=== PATIENT | female | born 1995 | race Caucasian/White ===

== ENCOUNTER 2017-03-12 06:13 | Emergency (ER) | payer OTHER ==
[~2017-03-12] VITALS: Ht 172.7 cm; Wt 80.0 kg
[2017-03-12 06:16] VITALS: TEMP 36.5; Ht 172.7 cm; Wt 80.0 kg
[2017-03-12] MEDS ORDERED: KETOROLAC TROMETHAMINE 30 MG/ML VIAL IV STA (06:31)
[2017-03-12] MEDS ORDERED: HYDROmorphone INJ 1 MG/ML SYR IV STA (06:31)
[2017-03-12] MEDS ORDERED: ONDANSETRON INJ 2 MG/ML 2 ML VIAL IV STA (06:31)
--- NOTE | 2017-03-12 06:39 | EMERGENCY ROOM VISIT NOTE ---
History Report prepared by Luisa: Charis Walker Under the Supervision of: Dr. Kartik Joshi M.D. First contact with patient: 06:29 Chief Complaint: KIDNEY STONE Stated Complaint: KIDNEY STONE History of Present Illness The patient is a 21 year old female who presents to the Emergency Room with complaints of right flank pain beginning at 0400 this morning. She describes the pain as a stabbing sensation, and rates it at a 10/10. She also complains of nausea. The patient reports a history of kidney stones. Source of History: patient Onset: 0400 this morning Position: other (right flank ) Symptom Intensity: rated at a 10/10 Quality: stabbing Associated Symptoms: + nausea Review of Systems See HPI for pertinent positives & negatives. A total of 10 systems reviewed and were otherwise negative. Family History No pertinent family history stated. Social History Smoking Status: Never Smoker Occupation Status: [employer] Current/Historical Medications Scheduled Ondasetron Odt (Zofran Odt), 4 MG SL Q6H Sulfa/Trimethoprim (Bactrim Ds 800MG/160MG), 1 TAB PO BID Scheduled PRN Oxycodone/Acetaminophen 5MG/325MG (Percocet 5MG/325MG), 1-2 TAB PO Q4H PRN for Pain Allergies Coded Allergies: No Known Allergies (Unverified , 03/12/17) Physical Exam Vital Signs Date Time Temp Pulse Resp B/P (MAP) Pulse Ox O2 Delivery O2 Flow Rate FiO2 03/12/17 09:05 55 20 106/58 100 03/12/17 07:19 80 20 112/68 100 03/12/17 06:16 36.5 97 20 113/64 97 Room Air Physical Exam GENERAL: Patient is a healthy-appearing well-nourished female HEAD: Normocephalic atraumatic EYES: Ocular movements intact pupils equal and react to light OROPHARYNX mucous membranes are moist no exudates present no erythema or edema present NECK: Supple no nuchal rigidity CHEST: Good equal expansion LUNGS: Clear and equal to auscultation CARDIAC: Normal S1 and S2 ABDOMEN: Soft nontender no guarding BACK: No CVA tenderness EXTREMITIES: No pain upon palpation normal muscle strength in all groups no clubbing cyanosis or edema NEURO: Patient is following commands and answering questions appropriately. Alert and oriented x3 Cranial Nerves 2-12 grossly intact Medical Decision & Procedures ER Provider Diagnostic Interpretation: Radiology results as stated below per my review and radiologist interpretation: (RENAL)RETROPERITON COMP HISTORY: 21 years-old Female Pt c/o Rt sided flank pain acute right-sided flank pain COMPARISON: KUB of same day TECHNIQUE: Multiple real-time sonogram images of the kidneys and urinary bladder were obtained assessing grayscale appearance and color flow FINDINGS: The right kidney measures 11.9 x 3.6 x 4.1 cm demonstrates mild pelvocaliectasis. Cortical medullary differentiation is preserved. No focal calculus or mass of the right kidney identified. Urinary bladder is unremarkable however ureteral jets are not identified. Left kidney measures 10.9 x 4.2 x 4.0 cm and appears unremarkable without hydronephrosis or renal calculi. No focal mass lesions identified on the left. IMPRESSION: 1. Mild dilation of the right renal pelvis, central and peripheral calyces suggests mild hydronephrosis possibly from obstructing process not identified on these images. No renal calculi identified. 2. Unremarkable sonographic appearance of the left kidney and urinary bladder. The above report was generated using voice recognition software. It may contain grammatical, syntax or spelling errors. Electronically signed by: Delon Atwood M.D. 03/12/2017 8:30 AM Dictated Date/Time: 03/12/2017 8:27 AM KUB HISTORY: Acute right-sided flank pain Pt c/o Rt sided flank pain COMPARISON: None. FINDINGS: The bowel gas pattern is non-obstructive. There is no organomegaly. Renal shadows are partially obscured by bowel gas. No renal calculi. No ureteral calculi. Punctate radiodensity overlying the right psoas musculature at the level of L3-L4 suggest fecal debris. No pneumoperitoneum or pneumatosis. No fracture. IMPRESSION: No renal or ureteral stones identified. Electronically signed by: Delon Atwood M.D. 03/12/2017 7:42 AM Dictated Date/Time: 03/12/2017 7:40 AM Laboratory Results 03/12/17 06:40 Red Blood Count 4.35, Mean Corpuscular Volume 88.3, Mean Corpuscular Hemoglobin 30.6, Mean Corpuscular Hemoglobin Concent 34.6, Mean Platelet Volume 9.8, Neutrophils (%) (Auto) 61.8, Lymphocytes (%) (Auto) 27.0, Monocytes (%) (Auto) 6.8, Eosinophils (%) (Auto) 3.8, Basophils (%) (Auto) 0.5, Neutrophils # (Auto) 5.37, Lymphocytes # (Auto) 2.35, Monocytes # (Auto) 0.59, Eosinophils # (Auto) 0.33, Basophils # (Auto) 0.04 03/12/17 06:40 Test 03/12/17 06:40 White Blood Count 8.69 K/uL (4.8-10.8) Red Blood Count 4.35 M/uL (4.2-5.4) Hemoglobin 13.3 g/dL (12.0-16.0) Hematocrit 38.4 % (37-47) Mean Corpuscular Volume 88.3 fL (80-100) Mean Corpuscular Hemoglobin 30.6 pg (25-34) Mean Corpuscular Hemoglobin Concent 34.6 g/dl (32-36) Platelet Count 267 K/uL (130-400) Mean Platelet Volume 9.8 fL (7.4-10.4) Neutrophils (%) (Auto) 61.8 % Lymphocytes (%) (Auto) 27.0 % Monocytes (%) (Auto) 6.8 % Eosinophils (%) (Auto) 3.8 % Basophils (%) (Auto) 0.5 % Neutrophils # (Auto) 5.37 K/uL (1.4-6.5) Lymphocytes # (Auto) 2.35 K/uL (1.2-3.4) Monocytes # (Auto) 0.59 K/uL (0.11-0.59) Eosinophils # (Auto) 0.33 K/uL (0-0.5) Basophils # (Auto) 0.04 K/uL (0-0.2) RDW Standard Deviation 40.0 fL (36.4-46.3) RDW Coefficient of Variation 12.5 % (11.5-14.5) Immature Granulocyte % (Auto) 0.1 % Immature Granulocyte # (Auto) 0.01 K/uL (0.00-0.02) Urine Color ORANGE Urine Appearance CLOUDY (CLEAR) Urine pH 5.5 (4.5-7.5) Urine Specific [place] 1.025 (1.000-1.030) Urine Protein 1+ (NEG) Urine Glucose (UA) NEG (NEG) Urine Ketones NEG (NEG) Urine Occult Blood 3+ (NEG) Urine Nitrite NEG (NEG) Urine Bilirubin NEG (NEG) Urine Urobilinogen NEG (NEG) Urine Leukocyte Esterase SMALL (NEG) Urine WBC (Auto) 10-30 /hpf (0-5) Urine RBC (Auto) >30 /hpf (0-4) Urine Hyaline Casts (Auto) 1-5 /lpf (0-5) Urine Epithelial Cells (Auto) >30 /lpf (0-5) Urine Bacteria (Auto) 1+ (NEG) Urine Test NEG (NEG) Anion Gap 9.0 mmol/L (3-11) Est Creatinine Clear Calc Drug Dose 117.6 ml/min Estimated GFR () 115.1 Estimated GFR (Non- 99.4 BUN/Creatinine Ratio 28.2 (10-20) Calcium Level 8.9 mg/dl (8.5-10.1) Total Bilirubin 0.5 mg/dl (0.2-1) Direct Bilirubin < 0.1 mg/dl (0-0.2) Aspartate Amino Transf (AST/SGOT) 20 U/L (15-37) Alanine Aminotransferase (ALT/SGPT) 38 U/L (12-78) Alkaline Phosphatase 126 U/L (45-117) Total Protein 7.7 gm/dl (6.4-8.2) Albumin 3.8 gm/dl (3.4-5.0) Lipase 132 U/L (73-393) Labs reviewed by ED physician. Medications Administered Medications (Trade) Dose Ordered Sig/Frantz Route Start Time Stop Time Status Last Admin Dose Admin Ondansetron HCl (Zofran Inj) 4 mg NOW STAT IV 03/12/17 06:31 03/12/17 06:34 DC 03/12/17 07:11 4 MG Ketorolac Tromethamine (Toradol Inj) 30 mg NOW STAT IV 03/12/17 06:31 03/12/17 06:34 DC 03/12/17 07:11 30 MG Hydromorphone HCl (Dilaudid Inj) 1 mg NOW STAT IV 03/12/17 06:31 03/12/17 06:34 DC 03/12/17 07:12 1 MG Ceftriaxone Sodium (Rocephin Inj) 1 gm NOW STAT IV 03/12/17 07:08 03/12/17 07:09 DC 03/12/17 07:49 1 GM Trimethoprim/ Sulfamethoxazole (Septra Ds 800/ 160MG Tab) 1 tab NOW STAT PO 03/12/17 07:51 03/12/17 07:52 DC 03/12/17 09:04 1 TAB ED Course 0630: Past medical records reviewed. The patient was evaluated in room B11B. A complete history and physical examination was performed. 0631: Ordered Dilaudid Inj 1 mg IV, Toradol Inj 30 mg IV, Zofran Inj 4 mg IV. 0708: Ordered Rocephin Inj 1 gm IV. 0751: Ordered Trimethoprim/Sulfamethoxazole 1 tab PO. 0850: Upon reexamination the patient is resting. I discussed results and treatment plan with the patient. She verbalizes agreement and understanding. The patient is ready for discharge. Medical Decision Differential diagnosis: Etiologies such as appendicitis, diverticulitis, PUD, biliary pathology, UTI, pancreatitis, obstruction, mesenteric ischemia, aortic pathology, infections, inflammatory bowel disease, renal colic, as well as others were entertained. This is a 21-year-old female who presents emergency department complaining of back pain. The patient has a history of kidney stones and she feels that this is another one. She was given Dilaudid Zofran as well as Toradol in the emergency department. I offered to call this patient's parents however she refused. KUB does not show any evidence of a stone however her renal ultrasound shows dilated renal pelvis. Based on this I feel that the patient is probably passing a small stone. I'm concerned that there is evidence of infection or urine and therefore the patient was given Rocephin and will be placed on Bactrim. Repeat examination revealed improvement patient's symptoms. I do feel that the patient as well as to be discharged home for follow-up with her primary care physician. Patient was in agreement with the treatment plan. Medication Reconcilliation Current Medication List: was personally reviewed by me Blood Pressure Screening Patient's blood pressure: Normal blood pressure Impression Primary Impression: Right flank pain Scribe Attestation The scribe's documentation has been prepared under my direction and personally reviewed by me in its entirety. I confirm that the note above accurately reflects all work, treatment, procedures, and medical decision making performed by me. Departure Information Dispostion Home / Self-Care Prescriptions Sulfa/Trimethoprim (Bactrim Ds 800MG/160MG) Tab 1 TAB PO BID for 10 Days, #20 TAB Prov: Kartik Joshi MD 03/12/17 Ondasetron Odt (ZOFRAN ODT) 4 Mg Tab 4 MG SL Q6H for Nausea, #6 TAB Prov: Kartik Joshi MD 03/12/17 Oxycodone/Acetaminophen 5MG/325MG (PERCOCET 5MG/325MG) Tab 1-2 TAB PO Q4H Y for Pain, #14 TAB Prov: Kartik Joshi MD 03/12/17 Referrals No Doctor, Assigned (PCP) [facility] Forms HOME CARE DOCUMENTATION FORM, IMPORTANT VISIT INFORMATION Patient Instructions ED Flank Pain Uncertain Cause, ED UTI Cystitis Female, My [facility] Additional Instructions You received narcotic or benzodiazepene medication while in the emergency room today. This is an addictive medication that may cause drowziness as well as constipation. Do not drive, operate heavy machinery, or drink alcohol under the influence of this medication. Take 600 mg Ibuprofen every 6 hours Take Percocet for breakthrough pain Radiographs and CTs will be reread by a radiologist in the morning. Culture results are usually available in approx 48 hours You have been examined and treated today on an emergency basis only. This is not a substitute for, or an effort to provide, complete comprehensive medical care. It is impossible to recognize and treat all injuries or illnesses in a single emergency department visit. It is therefore important that you follow up closely with [facility]. Call as soon as possible for an appointment. Thank you for your time and consideration. I look forward to speaking with you again soon. Please don't hesitate to call us if you have any questions.
[2017-03-12] MEDS ORDERED: CEFTRIAXONE SOD INJ 1 GM ADDVIAL IV STA (07:08)
[2017-03-12 07:16] LABS: ALBUMIN 3.8 gm/dl (3.4-5.0); ALT/SGPT 38 U/L (12-78); AST/SGOT 20 U/L (15-37); BLOOD UREA NITROGEN 24 mg/dl (7-18); CALCIUM 8.9 mg/dl (8.5-10.1); CARBON DIOXIDE 20 mmol/L (21-32); CREATININE 0.84 mg/dl (0.60-1.20); GLUCOSE 103 mg/dl (70-99); LIPASE 132 U/L (73-393); POTASSIUM 3.7 mmol/L (3.5-5.1); SODIUM 135 mmol/L (136-145)
[2017-03-12 07:19] LABS: ALKALINE PHOSPHATASE 126 U/L (45-117); TOTAL PROTEIN 7.7 gm/dl (6.4-8.2)
[2017-03-12 07:27] LABS: BASO % 0.5 %; BASO ABS # 0.04 K/uL (0-0.2); EOS % 3.8 %; EOS ABS # 0.33 K/uL (0-0.5); HEMATOCRIT 38.4 % (37-47); HEMOGLOBIN 13.3 g/dL (12.0-16.0); IG# 0.01 K/uL (0.00-0.02); LYMPH ABS # 2.35 K/uL (1.2-3.4); MEAN CELL VOLUME 88.3 fL (80-100); MEAN CORPUSCULAR HEMOGLOBIN 30.6 pg (25-34); MEAN CORPUSCULAR HGB CONC 34.6 g/dl (32-36); MEAN PLATELET VOLUME 9.8 fL (7.4-10.4); MONO % 6.8 %; MONO ABS # 0.59 K/uL (0.11-0.59); NEUT % 61.8 %; NEUT ABS # 5.37 K/uL (1.4-6.5); PLATELET COUNT 267 K/uL (130-400); RED CELL DISTRIBUTION WIDTH CV 12.5 % (11.5-14.5); WHITE BLOOD COUNT 8.69 K/uL (4.8-10.8)
--- NOTE | 2017-03-12 07:44 | DIAGNOSTIC IMAGING REPORT ---
KUB HISTORY: Acute right-sided flank pain Pt c/o Rt sided flank pain COMPARISON: None. FINDINGS: The bowel gas pattern is non-obstructive. There is no organomegaly. Renal shadows are partially obscured by bowel gas. No renal calculi. No ureteral calculi. Punctate radiodensity overlying the right psoas musculature at the level of L3-L4 suggest fecal debris. No pneumoperitoneum or pneumatosis. No fracture. IMPRESSION: No renal or ureteral stones identified. Electronically signed by: Delon Atwood M.D. 03/12/2017 7:42 AM Dictated Date/Time: 03/12/2017 7:40 AM
[2017-03-12] MEDS ORDERED: SULFAMETHOXAZOLE/TRIMETHOPRIM DS 800/160MG TAB PO STA (07:51)
--- NOTE | 2017-03-12 08:31 | DIAGNOSTIC IMAGING REPORT ---
(RENAL)RETROPERITON COMP HISTORY: 21 years-old Female Pt c/o Rt sided flank pain acute right-sided flank pain COMPARISON: KUB of same day TECHNIQUE: Multiple real-time sonogram images of the kidneys and urinary bladder were obtained assessing grayscale appearance and color flow FINDINGS: The right kidney measures 11.9 x 3.6 x 4.1 cm demonstrates mild pelvocaliectasis. Cortical medullary differentiation is preserved. No focal calculus or mass of the right kidney identified. Urinary bladder is unremarkable however ureteral jets are not identified. Left kidney measures 10.9 x 4.2 x 4.0 cm and appears unremarkable without hydronephrosis or renal calculi. No focal mass lesions identified on the left. IMPRESSION: 1. Mild dilation of the right renal pelvis, central and peripheral calyces suggests mild hydronephrosis possibly from obstructing process not identified on these images. No renal calculi identified. 2. Unremarkable sonographic appearance of the left kidney and urinary bladder. The above report was generated using voice recognition software. It may contain grammatical, syntax or spelling errors. Electronically signed by: Delon Atwood M.D. 03/12/2017 8:30 AM Dictated Date/Time: 03/12/2017 8:27 AM
[2017-03-12] MEDS ORDERED: OXYC-57 PO (08:48)
[2017-03-12] MEDS ORDERED: ONDA4TAB10 SL (08:48)
[2017-03-12] MEDS ORDERED: SULF800T23 PO (08:48)
[2017-03-12 09:05] VITALS: BP 106/58; PULSE 55; O2SAT 100
== END 2017-03-12 09:28 | disposition home or self-care (01) ==
LOC: C.EDB 06:15
DX: R10.9 Unspecified abdominal pain (principal); R11.0 Nausea; Z87.442 Personal history of urinary calculi